=== PATIENT | male | born 1980 | race Caucasian/White ===

== ENCOUNTER → 2017-09-20 | Outpatient (CLI) | payer MEDICARE, OTHER ==
[2017-09-18 14:48] VITALS: BMI 32.5
[2017-09-20 13:13] VITALS: BP 158/82; PULSE 89; RESP 16
--- NOTE | 2017-09-20 14:07 | P.CONS ---
History of Present Illness - Reason for Consult Consult date: 09/20/17 - Chief Complaint Lower back pain - History of Present Illness This is a 37-year-old male who has axial lower back pain that used to radiate down the left leg. The patient denies any bowel or bladder dysfunction or any weakness in the lower extremities. He also denies any paresthesia in the lower extremities. He had 2 back surgeries with laminectomy and then fusion. This pain gets worse after his back surgeries. He is on disability. He is and smokes one pack of cigarettes a day. He also has medical marijuana card however he does not use it anymore as he states because it impairs him mentally. Past Medical History Past Medical History: Diabetes Mellitus, GERD/Reflux, Hyperlipidemia, Hypertension, Seizure Disorder Additional Past Medical History / Comment(s): LAST SEIZURE 2003., PERICARDITIS X2, LOWER BACK PAIN. 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 History of Any Multi-Drug Resistant Organisms: None Reported Additional Past Surgical History / Comment(s): MULTIPLE LIPOMAS REMOVED (12-14) , DECOMPRESSION LAMINECTOMY AND FUSION MAY 2012., REMOVAL OF HARDWARE JULY 2013 Past Anesthesia/Blood Transfusion Reactions: No Reported Reaction, Motion Sickness Past Psychological History: Anxiety Smoking Status: Current every day smoker Past Alcohol Use History: None Reported Additional Past Alcohol Use History / Comment(s): SMOKES 1 PPD. STARTED SMOKING AGE 13, QUIT 2007 AND STARTED SMOKING AGAIN 1 YEAR AGO. Past Drug Use History: Marijuana, Prescription Drug Abuse Additional Drug Use History / Comment(s): STATES MARIJUANA CARD -- last use 3 weeks ago- STATES OCCASIONAL USE. STATES USES STREET VICODIN-no prescription - Past Family History Sister(s) Family Medical History: Cancer Additional Family Medical History / Comment(s): THYROID CANCER Medications and Allergies Home Medications Medication Instructions Recorded Confirmed Type Acetaminophen [Tylenol Arthritis] 1,300 mg PO QID PRN 09/18/17 09/18/17 History Cyclobenzaprine [Flexeril] 10 mg PO TID PRN 09/18/17 09/18/17 History Hydrocodone/Acetaminophen 1 tab PO Q6HR PRN 09/18/17 09/18/17 History [Hydrocodon-Acetaminoph 7.5-325] Ibuprofen [Motrin Ib] 800 mg PO QID PRN 09/18/17 09/18/17 History Insulin Aspart [NovoLOG Flexpen] 30 units SQ BID-W/MEALS 09/18/17 09/18/17 History LORazepam [Ativan] 1 mg PO QID 09/18/17 09/18/17 History Lisinopril [Zestril] 10 mg PO DAILY 09/18/17 09/18/17 History Lovastatin [Mevacor] 40 mg PO HS 09/18/17 09/18/17 History Omeprazole 40 mg PO DAILY PRN 09/18/17 09/18/17 History Ranitidine HCl [Zantac] 300 mg PO DAILY PRN 09/18/17 09/18/17 History glipiZIDE [Glucotrol] 10 mg PO AC-BID 09/18/17 09/18/17 History metFORMIN HCL [Glucophage] 1,000 mg PO AC-BID 09/18/17 09/18/17 History Allergies Allergy/AdvReac Type Severity Reaction Status Date / Time No Known Allergies Allergy Verified 09/20/17 12:59 Physical Exam Vitals: Vital Signs Pulse Resp BP Pulse Ox 09/20/17 13:01 89 16 158/82 98 - Constitutional General appearance: obese - EENT Eyes: PERRLA - Respiratory Respiratory: bilateral: CTA - Cardiovascular Rhythm: regular Heart sounds: normal: S1, S2 - Neurologic Neurologic: CNII-XII intact - Psychiatric Psychiatric: A&O x's 3, appropriate affect, intact judgment & insight Neuro exam of the lower extremities showed normal and symmetrical muscle strength and normal and symmetrical deep tendon reflexes and the knee area however absent ankle reflexes bilaterally. Straight leg raising test negative bilaterally. He has significant tenderness in the lumbar paravertebral area more on the left side than the right side. He has well-healed scar from his previous lumbar surgeries. Extension of the spine increases his back pain. Assessment and Plan Plan: This is a 37-year-old male with lumbar postlaminectomy pain syndrome and axial lower back pain. The patient failed to respond to multiple injections in his spine previously by different pain clinics. He used to be on Percocet which helps control his pain however right now recommended prescription for that and he frankly says that he is getting this medication off the streets. I explained to the patient that we do not prescribe opioids for long-term but I will refer him to see Dr. Wylie. If his pain gets out of control then he will contact our clinic and at that time we'll might need to do the procedure on his lumbar spine.
== END | disposition home or self-care (01) ==
LOC: PNWHC3 12:26
PROVIDERS: ATTEND Anesthesiology
DX: M96.1 Postlaminectomy syndrome, not elsewhere classified (principal); F41.9 Anxiety disorder, unspecified; E11.9 Type 2 diabetes mellitus without complications; E78.5 Hyperlipidemia, unspecified; I10 Essential (primary) hypertension; F17.200 Nicotine dependence, unspecified, uncomplicated; G40.909 Epilepsy, unspecified, not intractable, without status epilepticus; K21.9 Gastro-esophageal reflux disease without esophagitis; Z79.899 Other long term (current) drug therapy; Z79.84 Long term (current) use of oral hypoglycemic drugs; Z79.4 Long term (current) use of insulin; Z79.891 Long term (current) use of opiate analgesic; Z79.1 Long term (current) use of non-steroidal anti-inflammatories (NSAID)
CPT/HCPCS: 99201